=== PATIENT | male | born 1950 | race Two or more races ===

== ENCOUNTER 2024-01-26 05:42 | Day surgery (SDC) | payer OTHER ==
[~2024-01-26] VITALS: Ht 167.6 cm; Wt 74.8 kg
[~2024-01-26 05:42] MED LIST: AMILODIPINE PO; CIPRO500 MG PO; GLIMEPIRIDE4 MG PO; HYDROCHLOROTHIAZIDE PO; INTESTINEX680 MG PO; METFORMIN HCL500 M3 PO; TRAM1TAB98 PO; ZOCOR40 MG PO; [UNRECOGNIZED DRUG - OTHER] PO
[2024-01-26] MEDS ORDERED: POVIDONE-IODINE 118 ML BOTT TOP ONE (07:27)
[2024-01-26] MEDS ORDERED: METRONIDAZOLE/SODIUM CHLORIDE 500 MG/100 ML PIGGYBACK IV ONE (07:27)
[2024-01-26] MEDS ORDERED: BUPIVACAINE HCL/MPF 0.5% 30ML VIAL ONE (07:27)
[2024-01-26] MEDS ORDERED: DIBUCAINE 30 GM TUBE ONE (07:27)
[2024-01-26] MEDS ORDERED: CEFTRIAXONE SODIUM 2,000 MG VIAL ONE (07:27)
[2024-01-26] MEDS ORDERED: HEMOSTATIC MATRIX 1 KIT KIT TOP ONE (07:36)
[2024-01-26] MEDS ORDERED: RECTICARE30 GM TOP (08:53)
[2024-01-26] MEDS ORDERED: PERCOCET 5-3251 EACH PO (08:53)
== END 2024-01-26 12:20 | disposition home or self-care (01) ==
LOC: CIR.AMB 05:42 → EDBD 11:15 → CIR.AMB 11:15
PROVIDERS: ATTEND Surgery
DX: D12.8 Benign neoplasm of rectum (principal); R19.5 Other fecal abnormalities; I10 Essential (primary) hypertension